=== PATIENT | female | born 1970 | race Two or more races ===

== ENCOUNTER → 2017-05-14 | Emergency (ER) | payer OTHER ==
[~2017-05-14] MED LIST: ANAPROX275 MG PO; CLARITIN10 M1 PO; FLEXERIL 10 MG; FLEXERIL10 MG PO; GILTUSS TR TAB1 EACH PO; NORFLEX100 MG PO; TESSALON PERLE100 MG PO; VALIUM5 MG/M1 PO; VISTARIL50 MG PO; VOLTAREM 50 MG PO; ZITHROMAX200 MG PO
== END | disposition home or self-care (01) ==
LOC: ER 11:04
DX: R42 Dizziness and giddiness (principal); I10 Essential (primary) hypertension; F41.8 Other specified anxiety disorders

== ENCOUNTER 2017-05-17 14:26 | Emergency (ER) | payer OTHER ==
[~2017-05-17] VITALS: Ht 162.6 cm; Wt 56.7 kg
== END 2017-05-17 16:53 | disposition home or self-care (01) ==
LOC: ER 14:26
DX: I10 Essential (primary) hypertension (principal); F41.8 Other specified anxiety disorders

== ENCOUNTER 2017-05-27 07:10 | Outpatient (CLI) | payer OTHER | END 2017-05-27 07:24 | disposition home or self-care (01) | LOC: LAB 07:10 | DX: Z00.00 Encounter for general adult medical examination without abnormal findings (principal); I10 Essential (primary) hypertension; E03.9 Hypothyroidism, unspecified; E78.00 Pure hypercholesterolemia, unspecified; N91.0 Primary amenorrhea; E55.9 Vitamin D deficiency, unspecified; Z21 Asymptomatic human immunodeficiency virus [HIV] infection status; R79.9 Abnormal finding of blood chemistry, unspecified; R79.89 Other specified abnormal findings of blood chemistry ==

== ENCOUNTER → 2017-05-27 | Outpatient (CLI) | payer OTHER | END | disposition home or self-care (01) | LOC: NUCLEAR 11:30 | DX: R00.2 Palpitations (principal) ==

== ENCOUNTER 2017-06-18 10:04 | Outpatient (CLI) | payer OTHER | END 2017-06-18 10:50 | disposition home or self-care (01) | LOC: MAMO-SONO 10:04 | DX: Z12.31 Encounter for screening mammogram for malignant neoplasm of breast (principal) ==

== ENCOUNTER 2017-06-23 08:51 | Outpatient (CLI) | payer OTHER | END 2017-06-23 09:08 | disposition home or self-care (01) | LOC: SONOGRAMA 08:51 | DX: N94.0 Mittelschmerz (principal); R10.2 Pelvic and perineal pain; N94.89 Other specified conditions associated with female genital organs and menstrual cycle ==

== ENCOUNTER → 2017-06-23 | Outpatient (CLI) | payer OTHER | END | disposition home or self-care (01) | LOC: PPHC 10:09 | DX: M54.89 Other dorsalgia (principal) ==

== ENCOUNTER 2017-06-25 09:33 | Outpatient (CLI) | payer OTHER | END 2017-06-25 09:51 | disposition home or self-care (01) | LOC: RAD 09:33 | DX: M54.5 Low back pain (principal) ==

== ENCOUNTER → 2017-11-04 | Outpatient (CLI) | payer OTHER | END | disposition home or self-care (01) | LOC: RAD 16:38 | DX: M79.671 Pain in right foot (principal) ==

== ENCOUNTER 2017-12-14 11:38 | Emergency (ER) | payer OTHER ==
[~2017-12-14] VITALS: Ht 157.5 cm; Wt 58.1 kg
== END 2017-12-14 14:58 | disposition home or self-care (01) ==
LOC: ER 11:38
DX: S20.02XA Contusion of left breast, initial encounter (principal); S80.02XA Contusion of left knee, initial encounter; W10.8XXA Fall (on) (from) other stairs and steps, initial encounter; Y93.89 Activity, other specified; Y92.89 Other specified places as the place of occurrence of the external cause; Y99.8 Other external cause status

== ENCOUNTER 2018-06-09 07:00 | Outpatient (CLI) | payer OTHER | END 2018-06-09 07:47 | disposition home or self-care (01) | LOC: LAB 07:00 | DX: I10 Essential (primary) hypertension (principal); E03.8 Other specified hypothyroidism; E78.00 Pure hypercholesterolemia, unspecified; N39.0 Urinary tract infection, site not specified; Z11.4 Encounter for screening for human immunodeficiency virus [HIV]; Z00.00 Encounter for general adult medical examination without abnormal findings; E55.9 Vitamin D deficiency, unspecified; Z21 Asymptomatic human immunodeficiency virus [HIV] infection status; R79.9 Abnormal finding of blood chemistry, unspecified; R79.89 Other specified abnormal findings of blood chemistry ==

== ENCOUNTER → 2018-06-24 | Outpatient (CLI) | payer OTHER | END | disposition home or self-care (01) | LOC: MAMO-SONO 12:39 | DX: N64.4 Mastodynia (principal); N63.10 Unspecified lump in the right breast, unspecified quadrant; N63.20 Unspecified lump in the left breast, unspecified quadrant; N64.89 Other specified disorders of breast; Z12.31 Encounter for screening mammogram for malignant neoplasm of breast ==

== ENCOUNTER 2019-04-26 12:09 | Emergency (ER) | payer OTHER ==
[~2019-04-26] VITALS: Ht 154.9 cm; Wt 59.9 kg
== END 2019-04-26 15:15 | disposition home or self-care (01) ==
LOC: ER 12:09
DX: M54.5 Low back pain (principal)

== ENCOUNTER 2019-07-30 09:10 | Outpatient (CLI) | payer OTHER | END 2019-07-30 09:12 | disposition home or self-care (01) | LOC: SONOGRAMA 09:10 → MAMO-SONO 09:15 | DX: R10.2 Pelvic and perineal pain (principal); R10.30 Lower abdominal pain, unspecified; R19.2 Visible peristalsis ==

== ENCOUNTER → 2019-08-02 07:20 | Outpatient (CLI) | payer OTHER | END | disposition home or self-care (01) | LOC: LAB 07:20 | DX: R10.30 Lower abdominal pain, unspecified (principal); R10.2 Pelvic and perineal pain; Z12.11 Encounter for screening for malignant neoplasm of colon; R19.5 Other fecal abnormalities ==

== ENCOUNTER 2019-09-16 13:30 | Outpatient (CLI) | payer OTHER | END 2019-09-16 13:40 | disposition home or self-care (01) | LOC: MAMO-SONO 13:30 | PROVIDERS: ATTEND Obstetrics & Gynecology | DX: Z12.31 Encounter for screening mammogram for malignant neoplasm of breast (principal); N63.10 Unspecified lump in the right breast, unspecified quadrant; N63.20 Unspecified lump in the left breast, unspecified quadrant; N64.89 Other specified disorders of breast; N64.59 Other signs and symptoms in breast ==

== ENCOUNTER → 2019-12-28 | Outpatient (CLI) | payer OTHER | END | disposition home or self-care (01) | LOC: PPH VACUNA 10:00 | DX: Z23 Encounter for immunization (principal) ==

== ENCOUNTER 2020-01-04 11:23 | Outpatient (CLI) | payer OTHER | END 2020-01-04 11:33 | disposition home or self-care (01) | LOC: RAD 11:23 | PROVIDERS: ATTEND Physical Medicine & Rehabilitation | DX: M54.2 Cervicalgia (principal) ==

== ENCOUNTER 2020-03-02 13:18 | Outpatient (CLI) | payer OTHER | END 2020-03-02 15:00 | disposition home or self-care (01) | LOC: PPH VACUNA 13:18 | DX: Z23 Encounter for immunization (principal) ==

== ENCOUNTER → 2020-09-01 07:06 | Outpatient (CLI) | payer OTHER | END | disposition home or self-care (01) | LOC: LAB 07:06 | PROVIDERS: ATTEND Obstetrics & Gynecology | DX: N91.0 Primary amenorrhea (principal); I10 Essential (primary) hypertension; E03.9 Hypothyroidism, unspecified; N39.0 Urinary tract infection, site not specified; Z11.4 Encounter for screening for human immunodeficiency virus [HIV]; Z12.11 Encounter for screening for malignant neoplasm of colon ==

== ENCOUNTER 2020-09-11 09:23 | Outpatient (CLI) | payer OTHER | END 2020-09-11 13:51 | disposition home or self-care (01) | LOC: LAB 09:23 | PROVIDERS: ATTEND Internal Medicine Hematology & Oncology | DX: A53.9 Syphilis, unspecified (principal); Z11.3 Encounter for screening for infections with a predominantly sexual mode of transmission ==

== ENCOUNTER 2020-10-03 10:46 | Outpatient (CLI) | payer OTHER | END 2020-10-03 13:43 | disposition home or self-care (01) | LOC: MAMO-SONO 10:46 | PROVIDERS: ATTEND Obstetrics & Gynecology | DX: N64.59 Other signs and symptoms in breast (principal); Z12.31 Encounter for screening mammogram for malignant neoplasm of breast; Z87.898 Personal history of other specified conditions; N94.0 Mittelschmerz; R10.2 Pelvic and perineal pain; N94.89 Other specified conditions associated with female genital organs and menstrual cycle ==

== ENCOUNTER → 2020-11-02 07:56 | Outpatient (CLI) | payer OTHER | END | disposition home or self-care (01) | LOC: LAB 07:56 | PROVIDERS: ATTEND Obstetrics & Gynecology | DX: I10 Essential (primary) hypertension (principal); E03.8 Other specified hypothyroidism; E78.00 Pure hypercholesterolemia, unspecified; Z01.818 Encounter for other preprocedural examination ==

== ENCOUNTER 2020-11-06 05:30 | Day surgery (SDC) | payer OTHER | END 2020-11-06 14:20 | disposition home or self-care (01) | LOC: CIR.AMB 05:30 | PROVIDERS: ATTEND Obstetrics & Gynecology | DX: N84.0 Polyp of corpus uteri (principal); Z20.822 Contact with and (suspected) exposure to COVID-19 ==

== ENCOUNTER 2020-12-14 08:00 | Outpatient (CLI) | payer OTHER | END 2020-12-14 08:30 | disposition home or self-care (01) | LOC: PPH VACUNA 08:00 | PROVIDERS: ATTEND Emergency Medicine Pediatric Emergency Medicine | DX: Z23 Encounter for immunization (principal) ==

== ENCOUNTER 2021-01-31 09:00 | Outpatient (CLI) | payer OTHER | END 2021-01-31 09:30 | disposition home or self-care (01) | LOC: PPH VACUNA 09:00 | PROVIDERS: ATTEND Emergency Medicine Pediatric Emergency Medicine | DX: Z23 Encounter for immunization (principal) ==

== ENCOUNTER 2021-11-06 07:32 | Outpatient (CLI) | payer OTHER | END 2021-11-06 07:38 | disposition home or self-care (01) | LOC: LAB 07:32 | DX: E03.9 Hypothyroidism, unspecified (principal); E78.00 Pure hypercholesterolemia, unspecified; N39.0 Urinary tract infection, site not specified; E55.9 Vitamin D deficiency, unspecified; R79.9 Abnormal finding of blood chemistry, unspecified; R79.89 Other specified abnormal findings of blood chemistry; Z00.00 Encounter for general adult medical examination without abnormal findings; Z11.4 Encounter for screening for human immunodeficiency virus [HIV]; Z12.11 Encounter for screening for malignant neoplasm of colon ==

== ENCOUNTER 2021-11-06 10:28 | Outpatient (CLI) | payer OTHER | END 2021-11-06 10:30 | disposition home or self-care (01) | LOC: MAMO-SONO 10:28 | DX: Z12.31 Encounter for screening mammogram for malignant neoplasm of breast (principal); N63.0 Unspecified lump in unspecified breast; N64.59 Other signs and symptoms in breast; N64.9 Disorder of breast, unspecified; N94.0 Mittelschmerz; R10.2 Pelvic and perineal pain; N94.89 Other specified conditions associated with female genital organs and menstrual cycle ==

== ENCOUNTER 2021-11-08 09:54 | Outpatient (CLI) | payer OTHER | END 2021-11-09 08:13 | disposition home or self-care (01) | LOC: LAB 09:54 | PROVIDERS: ATTEND Obstetrics & Gynecology | DX: Z12.11 Encounter for screening for malignant neoplasm of colon (principal) ==

== ENCOUNTER 2021-12-05 09:01 | Outpatient (CLI) | payer OTHER | END 2021-12-05 09:06 | disposition home or self-care (01) | LOC: PPH VACUNA 09:01 | PROVIDERS: ATTEND Emergency Medicine Pediatric Emergency Medicine | DX: Z23 Encounter for immunization (principal) | CPT/HCPCS: 90686; G0008 ==

== ENCOUNTER 2021-12-13 09:28 | Outpatient (CLI) | payer OTHER | END 2021-12-13 09:40 | disposition home or self-care (01) | LOC: SONOGRAMA 09:28 | PROVIDERS: ATTEND Podiatrist Foot Surgery | DX: G57.51 Tarsal tunnel syndrome, right lower limb (principal) ==

== ENCOUNTER 2022-11-15 07:14 | Outpatient (CLI) | payer OTHER ==
[~2022-11-15 07:14] MED LIST changes: +CELEBREX200MG PO; +METAXALONE800 MG PO
== END 2022-11-15 07:22 | disposition home or self-care (01) ==
LOC: LAB 07:14
PROVIDERS: ATTEND General Practice
DX: Z00.00 Encounter for general adult medical examination without abnormal findings (principal); E78.5 Hyperlipidemia, unspecified; E55.9 Vitamin D deficiency, unspecified; R42 Dizziness and giddiness; R10.9 Unspecified abdominal pain; R10.2 Pelvic and perineal pain; Z91.018 Allergy to other foods

== ENCOUNTER 2022-11-29 08:57 | Outpatient (CLI) | payer OTHER | END 2022-11-29 09:02 | disposition home or self-care (01) | LOC: RAD 08:57 | PROVIDERS: ATTEND General Practice | DX: M79.672 Pain in left foot (principal); M25.572 Pain in left ankle and joints of left foot ==

== ENCOUNTER 2022-12-03 14:19 | Outpatient (CLI) | payer OTHER | END 2022-12-03 14:28 | disposition home or self-care (01) | LOC: MAMO-SONO 14:19 | PROVIDERS: ATTEND Obstetrics & Gynecology | DX: N63.0 Unspecified lump in unspecified breast (principal); N64.59 Other signs and symptoms in breast; N64.9 Disorder of breast, unspecified; Z12.31 Encounter for screening mammogram for malignant neoplasm of breast; N94.0 Mittelschmerz; R10.2 Pelvic and perineal pain; N94.89 Other specified conditions associated with female genital organs and menstrual cycle ==

== ENCOUNTER 2023-05-13 15:28 | Emergency (ER) | payer OTHER ==
[~2023-05-13] VITALS: Ht 154.9 cm; Wt 61.2 kg
[2023-05-13] MEDS ORDERED: ORPHENADRINE CITRATE 30 MG/ML AMPUL IM ONE (17:15)
[2023-05-13] MEDS ORDERED: TRIAMCINOLONE ACETONIDE 40 MG/ML VIAL IM ONE (17:15)
== END 2023-05-13 17:43 | disposition home or self-care (01) ==
LOC: ER 15:28
DX: M54.59 Other low back pain (principal); M54.9 Dorsalgia, unspecified

== ENCOUNTER 2023-05-16 11:02 | Outpatient (CLI) | payer OTHER | END 2023-05-16 11:10 | disposition home or self-care (01) | LOC: RAD 11:02 | PROVIDERS: ATTEND General Practice | DX: M54.50 Low back pain, unspecified (principal); Z91.018 Allergy to other foods ==

== ENCOUNTER 2023-06-19 07:25 | Outpatient (CLI) | payer OTHER | END 2023-06-19 07:57 | disposition home or self-care (01) | LOC: MRI 07:25 | DX: M54.50 Low back pain, unspecified (principal); M54.16 Radiculopathy, lumbar region | CPT/HCPCS: 72148 ==

== ENCOUNTER 2023-10-24 13:26 | Outpatient (CLI) | payer OTHER | END 2023-10-24 13:40 | disposition home or self-care (01) | LOC: RAD 13:26 | DX: M54.50 Low back pain, unspecified (principal) ==

== ENCOUNTER → 2023-12-15 07:14 | Outpatient (CLI) | payer OTHER ==
[2023-12-15 08:08] LABS: MEAN CORPUSCULAR HEMOGLOBIN 30.9 pg (27.00-32.0); MEAN CORPUSCULAR HGB CONC 35.1 g/dl (32.0-36.0); RED BLOOD COUNT 4.54 M/uL (4.00-6.00); RED CELL DISTRIBUTION WIDTH 12.9 % (11.5-14.5)
[2023-12-15 08:59] LABS: PLATELET COUNT 112 K/uL (150-450)
[2023-12-15 09:35] LABS: ALBUMIN 3.9 gm/dL (3.4-5.0); BILIRUBIN TOTAL 0.61 mg/dL (0.3-1.2); CALCIUM 9.1 mg/dL (8.5-10.1); CHOL HDL RATIO 3.7 (0-5.0); CREATININE SERUM 0.62 mg/dL (0.55-1.02); GFR 101.48; GLOBULINA 3.6 G/DL (2.4-3.5); POTASSIUM 3.68 mEq/L (3.5-5.1); T4 FREE 1.1 NG/ML (0.76-1.46); TOTAL PROTEIN 7.5 gm/dL (6.4-8.2); TSH 1.47 uIU/mL (0.358-3.74)
[2023-12-15 14:42] LABS: PH,URINE 5.5 (5.0-8.0); URINE APPEARANCE Clear; URINE BILIRRUBIN Negative (NEGATIVE); URINE BLOOD Trace; URINE COLOR Yellow; URINE GLUCOSE Negative (NEGATIVE); URINE KETONE Negative (NEGATIVE); URINE LEUKOCYTE Negative; URINE NITRATE Negative; URINE PROTEIN Negative (NEGATIVE); URINE UROBILINOGEN 0.2 E.U./dl
[2023-12-15 14:46] LABS: URINE BACTERIA 26.4 uL (0.0-1933); URINE EPITHELIAL CELLS 4.7 uL (0.0-38.8); URINE RBC 18.9 uL (0.0-20.8); URINE WBC 4.1 uL (0.0-23.2)
== END | disposition home or self-care (01) ==
LOC: LAB 07:14
PROVIDERS: ATTEND Obstetrics & Gynecology
DX: E78.00 Pure hypercholesterolemia, unspecified (principal); I10 Essential (primary) hypertension; Z00.00 Encounter for general adult medical examination without abnormal findings; E03.9 Hypothyroidism, unspecified; Z11.4 Encounter for screening for human immunodeficiency virus [HIV]; Z12.11 Encounter for screening for malignant neoplasm of colon; E55.9 Vitamin D deficiency, unspecified; Z21 Asymptomatic human immunodeficiency virus [HIV] infection status; R79.9 Abnormal finding of blood chemistry, unspecified; R79.89 Other specified abnormal findings of blood chemistry

== ENCOUNTER 2023-12-16 07:38 | Outpatient (CLI) | payer OTHER ==
[2023-12-16 07:42] LABS: ob NEGATIVE (NEGATIVE)
== END 2023-12-16 23:03 | disposition home or self-care (01) ==
LOC: LAB 07:38
PROVIDERS: ATTEND Obstetrics & Gynecology
DX: Z00.00 Encounter for general adult medical examination without abnormal findings (principal); I10 Essential (primary) hypertension; E03.9 Hypothyroidism, unspecified; E78.00 Pure hypercholesterolemia, unspecified; N39.0 Urinary tract infection, site not specified; Z11.4 Encounter for screening for human immunodeficiency virus [HIV]; Z12.11 Encounter for screening for malignant neoplasm of colon; Z21 Asymptomatic human immunodeficiency virus [HIV] infection status; R79.9 Abnormal finding of blood chemistry, unspecified; R79.89 Other specified abnormal findings of blood chemistry

== ENCOUNTER 2023-12-19 09:28 | Outpatient (CLI) | payer OTHER | END 2023-12-19 10:00 | disposition home or self-care (01) | LOC: PPH VACUNA 09:28 | PROVIDERS: ATTEND Emergency Medicine Pediatric Emergency Medicine | DX: Z23 Encounter for immunization (principal) ==

== ENCOUNTER 2023-12-23 09:06 | Outpatient (CLI) | payer OTHER | END 2023-12-23 09:16 | disposition home or self-care (01) | LOC: MAMO-SONO 09:06 | PROVIDERS: ATTEND Obstetrics & Gynecology | DX: N63 Unspecified lump in breast (principal); N64.59 Other signs and symptoms in breast; N64.9 Disorder of breast, unspecified ==

== ENCOUNTER 2024-05-31 15:33 | Outpatient (CLI) | payer OTHER | END 2024-05-31 15:37 | disposition home or self-care (01) | LOC: RAD 15:33 | PROVIDERS: ATTEND Emergency Medicine | DX: M71.9 Bursopathy, unspecified (principal) ==

== ENCOUNTER 2024-06-03 07:46 | Outpatient (CLI) | payer OTHER | END 2024-06-03 07:47 | disposition home or self-care (01) | LOC: SONOGRAMA 07:46 | PROVIDERS: ATTEND Internal Medicine Hematology & Oncology | DX: M70.32 Other bursitis of elbow, left elbow (principal) ==

== ENCOUNTER 2024-07-19 12:08 | Outpatient (CLI) | payer OTHER ==
[~2024-07-19 12:08] MED LIST changes: +METHOCARBAMOL500 MG PO
[2024-07-22 01:11] LABS: HEPATITIS A ANTIBODY IGG Negative (Negative); HEPATITIS B SURFACE ANTIBODY Reactive (.); HEPATITIS C VIRUS ANTIBODY Non Reactive (Non Reactive)
== END 2024-07-19 12:10 | disposition home or self-care (01) ==
LOC: LAB 12:08
DX: A64 Unspecified sexually transmitted disease (principal); B19.9 Unspecified viral hepatitis without hepatic coma

== ENCOUNTER 2024-11-22 08:11 | Emergency (ER) | payer OTHER ==
[~2024-11-22] VITALS: Ht 154.9 cm; Wt 67.1 kg
[2024-11-22] MEDS ORDERED: 0.9 % SODIUM CHLORIDE 1,000 ML IV ONE (08:45)
[2024-11-22 09:07] LABS: BASO % 0.3 % (0.1-1.2); EOS # 0.02 (0.04-0.54); EOS % 0.2 % (0.7-7.0); LYMPH # 1.74 (1.18-3.74); LYMPH % 18.8 % (19.3-53.1); MEAN PLATELET VOLUME 13.70 fl (9.4-12.4); MONO # 0.45 (0.24-0.82); MONO % 4.9 % (4.7-12.5); NEUT # 6.99 (1.56-6.13); NEUT % 75.6 % (34.0-71.1); RED CELL DISTRIBUTION WIDTH 12.3 % (11.6-14.4)
[2024-11-22 09:40] LABS: URINE APPEARANCE Clear; URINE BILIRRUBIN Negative (NEGATIVE); URINE BLOOD Negative; URINE COLOR Yellow; URINE GLUCOSE Negative (NEGATIVE); URINE KETONE Negative (NEGATIVE); URINE LEUKOCYTE Trace; URINE NITRATE Negative; URINE PROTEIN Trace (NEGATIVE); URINE UROBILINOGEN 0.2 E.U./dl
[2024-11-22 09:41] LABS: URINE BACTERIA 146.3 uL (0.0-1933); URINE EPITHELIAL CELLS 10.7 uL (0.0-38.8); URINE RBC 23.7 uL (0.0-20.8); URINE WBC 20.9 uL (0.0-23.2)
[2024-11-22 09:46] LABS: URINE CAST 0.00 uL (0.0-1.40)
[2024-11-22 09:48] LABS: INR 0.95
[2024-11-22 09:53] LABS: ALT/SGPT 36.0 U/L (12-78); AST/SGOT 25.0 U/L (15-37); BILIRUBIN TOTAL 0.32 mg/dL (0.3-1.2); BUN CREA RATIO 15.0 (7.0-25.0); CREATININE SERUM 0.71 mg/dL (0.55-1.02); GFR 86.44; GLOBULINA 4.4 G/DL (2.4-3.5); GLUCOSE FASTING 122.0 mg/dL (65-100); OSMOLALITY SERUM 282.0 MOSM/KG (275-295)
[2024-11-22] MEDS ORDERED: CIPRO500 MG PO (12:44)
[2024-11-22] MEDS ORDERED: PEPCID AC20 MG PO (12:44)
[2024-11-22] MEDS ORDERED: METRONIDAZOLE500 MG PO (12:44)
[2024-11-22] MEDS ORDERED: ANALPRAM HC 1%30 GM TOP (12:44)
[2024-11-22] MEDS ORDERED: PROBIOTIC1 EAC2 PO (12:44)
== END 2024-11-22 12:52 | disposition home or self-care (01) ==
LOC: ER 08:11
PROVIDERS: General Practice
DX: K62.5 Hemorrhage of anus and rectum (principal); K76.0 Fatty (change of) liver, not elsewhere classified; Z88.0 Allergy status to penicillin

== ENCOUNTER 2024-12-31 07:40 | Outpatient (CLI) | payer OTHER ==
[~2024-12-31 07:40] MED LIST changes: +ANALPRAM HC 1%30 GM TOP; +CIPRO500 MG PO; +METRONIDAZOLE500 MG PO; +PEPCID AC20 MG PO; +PROBIOTIC1 EAC2 PO
[2025-02-16] MEDS ORDERED: NAPR500T14 PO (16:39)
[2025-02-16] MEDS ORDERED: CYCLOBENZAPRINE10 MG PO (16:40)
== END 2024-12-31 07:50 | disposition home or self-care (01) ==
LOC: PPH VACUNA 07:40
PROVIDERS: ATTEND Emergency Medicine Pediatric Emergency Medicine
DX: Z23 Encounter for immunization (principal)

== ENCOUNTER 2025-01-26 07:24 | Outpatient (CLI) | payer OTHER | END 2025-01-26 07:27 | disposition home or self-care (01) | LOC: MAMO-SONO 07:24 | PROVIDERS: ATTEND Obstetrics & Gynecology | DX: N94.0 Mittelschmerz (principal); R10.20 Pelvic and perineal pain unspecified side; N94.89 Other specified conditions associated with female genital organs and menstrual cycle; N63 Unspecified lump in breast; N64.59 Other signs and symptoms in breast; N64.9 Disorder of breast, unspecified ==

== ENCOUNTER 2025-01-27 06:53 | Outpatient (CLI) | payer OTHER ==
[2025-01-27 07:41] LABS: BASO % 0.2 % (0.1-1.2); EOS # 0.11 (0.04-0.54); EOS % 1.3 % (0.7-7.0); LYMPH # 3.33 (1.18-3.74); LYMPH % 40.9 % (19.3-53.1); MEAN PLATELET VOLUME 12.70 fl (9.4-12.4); MONO # 0.60 (0.24-0.82); MONO % 7.4 % (4.7-12.5); NEUT # 4.08 (1.56-6.13); NEUT % 50.1 % (34.0-71.1); RED CELL DISTRIBUTION WIDTH 12.5 % (11.6-14.4)
[2025-01-27 08:38] LABS: ALT/SGPT 62.0 U/L (12-78); AST/SGOT 36.0 U/L (15-37); BILIRUBIN TOTAL 0.71 mg/dL (0.3-1.2); BUN CREA RATIO 18.0 (7.0-25.0); CHOL HDL RATIO 3.9 (0-5.0); CREATININE SERUM 0.68 mg/dL (0.55-1.02); GFR 90.86; GLOBULINA 4.1 G/DL (2.4-3.5); GLUCOSE FASTING 91.0 mg/dL (65-100); HDL 55.0 mg/dl (40-60); LDL 112.0 mg/dl (0-130); OSMOLALITY SERUM 281.0 MOSM/KG (275-295); T4 FREE 1.16 NG/ML (0.76-1.46); TSH 1.54 uIU/mL (0.358-3.74); VLDL 44.0 (0-39)
[2025-01-27 11:23] LABS: CORTISOL 10.0 ug/dl; VITAMIN D3 25 HYDROXY 60.2 ng/ml (30-120)
[2025-01-27 11:51] LABS: URINE APPEARANCE Clear; URINE BILIRRUBIN Negative (NEGATIVE); URINE BLOOD Negative; URINE COLOR Yellow; URINE GLUCOSE Negative (NEGATIVE); URINE KETONE Negative (NEGATIVE); URINE LEUKOCYTE Trace; URINE NITRATE Negative; URINE PROTEIN Negative (NEGATIVE); URINE UROBILINOGEN 0.2 E.U./dl
[2025-01-27 11:54] LABS: URINE BACTERIA 141.5 uL (0.0-1933); URINE EPITHELIAL CELLS 3.8 uL (0.0-38.8); URINE RBC 27.5 uL (0.0-20.8); URINE WBC 14.2 uL (0.0-23.2)
[2025-01-27 11:57] LABS: URINE CAST 0.14 uL (0.0-1.40)
[2025-01-29 06:07] LABS: DHEA-SULFATE 74.6 ug/dL (41.2-243.7); ESTRADIOL SERUM < 5.0 pg/mL (.); PROGESTERONA < 0.1 ng/mL (.); PROLACTIN 7.6 ng/mL (3.6-25.2)
== END 2025-01-27 06:59 | disposition home or self-care (01) ==
LOC: LAB 06:53
PROVIDERS: ATTEND Obstetrics & Gynecology
DX: E03.9 Hypothyroidism, unspecified (principal); I10 Essential (primary) hypertension; Z00.00 Encounter for general adult medical examination without abnormal findings; N39.0 Urinary tract infection, site not specified; Z11.4 Encounter for screening for human immunodeficiency virus [HIV]; E55.9 Vitamin D deficiency, unspecified; Z21 Asymptomatic human immunodeficiency virus [HIV] infection status; R79.9 Abnormal finding of blood chemistry, unspecified; R79.89 Other specified abnormal findings of blood chemistry

== ENCOUNTER 2025-01-31 08:00 | Outpatient (CLI) | payer OTHER ==
[2025-01-31 11:21] LABS: ob NEGATIVE (NEGATIVE)
== END 2025-01-31 15:40 | disposition home or self-care (01) ==
LOC: LAB 08:00
PROVIDERS: ATTEND Obstetrics & Gynecology
DX: E03.9 Hypothyroidism, unspecified (principal); E78.00 Pure hypercholesterolemia, unspecified; N39.0 Urinary tract infection, site not specified; Z11.4 Encounter for screening for human immunodeficiency virus [HIV]; Z12.11 Encounter for screening for malignant neoplasm of colon; Z21 Asymptomatic human immunodeficiency virus [HIV] infection status; R79.9 Abnormal finding of blood chemistry, unspecified; Z00.00 Encounter for general adult medical examination without abnormal findings